=== PATIENT | male | born 1960 | race Caucasian/White ===

== ENCOUNTER 2024-01-01 17:43 | Inpatient (IN) | payer MEDICAID ==
[~2024-01-01] VITALS: Ht 175.3 cm; Wt 80.9 kg
[2024-01-01 02:15] VITALS: BP 110/63
[2024-01-01 17:43] VITALS: BP 114/65
[~2024-01-01 17:43] MED LIST: KEFLEX500 MG PO; VICODIN 5/500 505 MG PO
[2024-01-01] MEDS ORDERED: SODIUM CHLORIDE 0.9% 1,000 ML IV ONE (17:50)
[2024-01-01] MEDS ORDERED: IOHEXOL 350 MG/ML 100 ML VIAL IV ONE ×2 (17:50→18:06)
[2024-01-01] MEDS ORDERED: SODIUM CHLORIDE 0.9% 100 ML BAG IV ONE (17:50)
[2024-01-01] MEDS ORDERED: LORazepam 2 MG/ML VIAL IM ONE (18:05)
[2024-01-01] MEDS ORDERED: SODIUM CHLORIDE 0.9% 100 ML IV ONE (18:06)
[2024-01-01 18:51] LABS: HEMATOCRIT 46.7 % (42.0-52.0); MEAN CELL VOLUME 84.6 fl (80.0-94.0); MEAN CORPUSCULAR HGB CONC 34.3 g/dl (33.0-37.0); MEAN PLATELET VOLUME 11.6 fl (9.6-12.3); PLATELET COUNT AUTOMATED 334 10*3/uL (130-400); RED BLOOD COUNT 5.52 10*6/uL (4.50-5.90); RED CELL DISTRI WIDTH 13.3 % (0-14.5); WHITE BLOOD COUNT 28.9 10*3/uL (4.8-10.8)
[2024-01-01 18:57] LABS: MANUAL DIFF REFLEX YES
[2024-01-01 19:06] LABS: ACT PARTIAL THROMBO TIME 27.1 SECONDS (20.0-32.1)
[2024-01-01 19:10] LABS: BURR CELLS FEW; PLATELET SUFFICIENCY NORMAL (NORMAL); TOTAL CELLS COUNTED 100 #CELLS
[2024-01-01 19:15] LABS: BUN 40 mg/dl (9-23); CHLORIDE 102 mmol/L (98-107); POTASSIUM 4.7 mmol/L (3.4-5.1)
[2024-01-01 19:18] VITALS: BP 124/64
[2024-01-01 19:20] LABS: CPK 13602 U/L (34-171)
[2024-01-01] MEDS ORDERED: ENTACAPONE200 M1 PO (19:20)
[2024-01-01] MEDS ORDERED: PROPAFENONE HC150 MG PO (19:21)
[2024-01-01] MEDS ORDERED: ZOLOFT25 MG PO (19:21)
[2024-01-01] MEDS ORDERED: CARBIDOPA-LEVO1 EAC1 PO (19:22)
[2024-01-01] MEDS ORDERED: SODIUM CHLORIDE 0.9% 1,000 ML IV SCH (19:40)
[2024-01-01 19:50] LABS: BILIRUBIN 1+ (Negative); BLOOD 3+ (Negative); CLARITY Clear (Clear); COLOR Dark Yellow (Yellow); GLUCOSE Negative (Negative); KETONE 1+ (Negative); LEUKO ESTERASE Trace (Negative); NITRITE Negative (Negative); SPECIFIC GRAVITY >= 1.030 (1.001-1.030)
[2024-01-01 20:00] VITALS: BP 110/63
[2024-01-01 20:04] LABS: BACTERIA 1+; MUCOUS 1+; RBC 21-30 rbc/hpf (0-2)
[2024-01-01 20:12] LABS: ALKALINE PHOSPHATASE 51 U/L (46-116); SGPT/ALT 83 U/L (5-49)
[2024-01-01 20:15] LABS: MYOGLOBIN > 10000.0 ng/ml (16-116)
[2024-01-01] MEDS ORDERED: Ceftriaxone Sodium 1 GM/10 ML SYR IV ONE (20:20)
[2024-01-01] MEDS ORDERED: ACETAMINOPHEN 325 MG TAB PO PRN (23:35)
[2024-01-01] MEDS ORDERED: Ondansetron Hydrochloride 4 MG/2 ML VIAL IV PRN (23:35)
[2024-01-01] MEDS ORDERED: ATORVASTATIN CALCIUM 40 MG TABLET PO SCH (23:50)
[2024-01-02 00:45] LABS: URINE AMPHETAMINES Negative (1000ng/ml); URINE BARBITURATES Negative (200ng/ml); URINE BENZODIAZEPINES Negative (200ng/ml); URINE CANNABINOIDS (THC) Negative (50ng/ml); URINE COCAINE Negative (300ng/ml); URINE METHADONE Negative (300ng/ml); URINE OPIATES Negative (300ng/ml); URINE PHENCYCLIDINE Negative (25ng/ml)
[2024-01-02 01:28] VITALS: BP 113/55
[2024-01-02 04:00] VITALS: BP 106/64
[2024-01-02] MEDS ORDERED: SILVER SULFADIAZINE 25 GM TUBE T ONE (04:15)
[2024-01-02 05:33] LABS: ALKALINE PHOSPHATASE 44 U/L (46-116); CHLORIDE 108 mmol/L (98-107); CHOLESTEROL 136 mg/dL (<200); LDL CHOLESTEROL 75 mg/dL (9-159); POTASSIUM 3.9 mmol/L (3.4-5.1); SGPT/ALT 78 U/L (5-49); TOTAL PROTEIN 6.2 gm/dL (6.0-8.0); TRIGLYCERIDES 89 mg/dl (<150)
[2024-01-02 06:01] LABS: BUN 28 mg/dl (9-23)
[2024-01-02 06:04] LABS: HEMATOCRIT 42.5 % (42.0-52.0); MEAN CELL VOLUME 84.7 fl (80.0-94.0); MEAN CORPUSCULAR HGB 28.9 pg (27.0-31.0); MEAN CORPUSCULAR HGB CONC 34.1 g/dl (33.0-37.0); MEAN PLATELET VOLUME 11.9 fl (9.6-12.3); PLATELET COUNT AUTOMATED 264 10*3/uL (130-400); RED BLOOD COUNT 5.02 10*6/uL (4.50-5.90); RED CELL DISTRI WIDTH 13.6 % (0-14.5); WHITE BLOOD COUNT 19.5 10*3/uL (4.8-10.8)
[2024-01-02 06:13] LABS: MANUAL DIFF REFLEX YES
[2024-01-02 09:11] LABS: PLATELET SUFFICIENCY NORMAL (NORMAL); TOTAL CELLS COUNTED 100 #CELLS
[2024-01-02 10:00] VITALS: BP 111/59
[2024-01-02] MEDS ORDERED: Propafenone Hydrochloride 150 MG TAB PO SCH ×2 (10:00→22:00)
[2024-01-02] MEDS ORDERED: LEVODOP PO SCH (10:00)
[2024-01-02] MEDS ORDERED: ENTACAPONE 200 MG TAB PO SCH (10:00)
[2024-01-02] MEDS ORDERED: Sertraline Hydrochloride 50 MG TAB PO SCH (10:00)
[2024-01-02] MEDS ORDERED: Carbidopa/Levodopa 25/100MG 1 TAB TAB PO SCH ×2 (10:00)
[2024-01-02] MEDS ORDERED: ENTACAPONE PO SCH (10:00)
[2024-01-02] MEDS ORDERED: SODIUM CHLORIDE 0.9% 1,000 ML IV ONE (10:00)
[2024-01-02] MEDS ORDERED: ASPIRIN, CHEWABLE 81 MG TAB PO SCH (10:00)
[2024-01-02] MEDS ORDERED: CARBIDOPA PO SCH (10:00)
[2024-01-02] MEDS ORDERED: HEPARIN SODIUM 250 ML IV SCH (10:25)
[2024-01-02] MEDS ORDERED: HEEL PROTECTOR DEVICE ONE (10:56)
[2024-01-02 14:41] LABS: BUN 30 mg/dl (9-23); CHLORIDE 108 mmol/L (98-107); POTASSIUM 3.7 mmol/L (3.4-5.1)
[2024-01-02 15:54] VITALS: BP 106/58
[2024-01-02 19:48] VITALS: BP 112/60
[2024-01-02] MEDS ORDERED: Ceftriaxone Sodium 1 GM in SYRINGE INFUSION 10 ML IV SCH (20:00)
[2024-01-02] MEDS ORDERED: SODIUM CHLORIDE 0.9% 1,000 ML IV SCH (20:00)
[2024-01-02 23:58] VITALS: BP 110/61
[2024-01-03] MEDS ORDERED: Carbidopa/Levodopa 25/100MG 1 TAB TAB PO SCH
[2024-01-03] MEDS ORDERED: ENTACAPONE 200 MG TAB PO SCH
[2024-01-03 03:49] VITALS: BP 123/63
[2024-01-03 06:11] LABS: ALKALINE PHOSPHATASE 37 U/L (46-116); BUN 23 mg/dl (9-23); CHLORIDE 109 mmol/L (98-107); POTASSIUM 3.6 mmol/L (3.4-5.1); SGPT/ALT 18 U/L (5-49); TOTAL PROTEIN 5.3 gm/dL (6.0-8.0)
[2024-01-03 06:24] LABS: BASO % 0.2 % (0.0-1.0); EOS % 0.2 % (1.0-4.0); HEMATOCRIT 37.6 % (42.0-52.0); MEAN CORPUSCULAR HGB 29.1 pg (27.0-31.0); MEAN CORPUSCULAR HGB CONC 33.8 g/dl (33.0-37.0); MEAN PLATELET VOLUME 11.8 fl (9.6-12.3); MONO # 1.2 10*3/uL (0.1-1.0); MONO % 9.6 % (3.0-9.0); NEUT # 9.1 10*3/uL (2.3-7.9); NEUT % 74.4 % (47.0-73.0); PLATELET COUNT AUTOMATED 202 10*3/uL (130-400); RED BLOOD COUNT 4.37 10*6/uL (4.50-5.90); RED CELL DISTRI WIDTH 13.7 % (0-14.5); WHITE BLOOD COUNT 12.2 10*3/uL (4.8-10.8)
[2024-01-03 08:00] VITALS: BP 111/61
[2024-01-03] MEDS ORDERED: Polyethylene Glycol 15 ML BOT OPH PRN (09:20)
[2024-01-03 12:00] VITALS: BP 97/58
[2024-01-03 16:00] VITALS: BP 120/74
[2024-01-03 20:00] VITALS: BP 102/56
[2024-01-04] VITALS: BP 110/60
[2024-01-04 04:00] VITALS: BP 119/67
[2024-01-04 05:12] LABS: ALKALINE PHOSPHATASE 39 U/L (46-116); BUN 19 mg/dl (9-23); CHLORIDE 109 mmol/L (98-107); POTASSIUM 3.6 mmol/L (3.4-5.1); SGPT/ALT 12 U/L (5-49); TOTAL PROTEIN 5.5 gm/dL (6.0-8.0)
[2024-01-04 06:19] LABS: BASO % 0.4 % (0.0-1.0); EOS # 0.1 10*3/uL (0.0-0.4); HEMATOCRIT 37.2 % (42.0-52.0); MEAN CELL VOLUME 86.9 fl (80.0-94.0); MEAN CORPUSCULAR HGB 29.2 pg (27.0-31.0); MEAN CORPUSCULAR HGB CONC 33.6 g/dl (33.0-37.0); MEAN PLATELET VOLUME 11.9 fl (9.6-12.3); MONO % 9.6 % (3.0-9.0); NEUT % 67.6 % (47.0-73.0); PLATELET COUNT AUTOMATED 208 10*3/uL (130-400); RED BLOOD COUNT 4.28 10*6/uL (4.50-5.90); RED CELL DISTRI WIDTH 13.8 % (0-14.5); WHITE BLOOD COUNT 10.3 10*3/uL (4.8-10.8)
[2024-01-04 08:00] VITALS: BP 124/69
[2024-01-04 16:00] VITALS: BP 113/67
[2024-01-04] MEDS ORDERED: RIVAROXABAN 15 MG TAB PO SCH (17:00)
[2024-01-04 20:00] VITALS: BP 133/70
[2024-01-04] MEDS ORDERED: Doxycycline Hyclate 100 MG CAP PO SCH (22:00)
[2024-01-05] VITALS: BP 144/68
[2024-01-05 06:01] LABS: BUN 19 mg/dl (9-23); CHLORIDE 107 mmol/L (98-107); POTASSIUM 3.6 mmol/L (3.4-5.1)
[2024-01-05 06:16] LABS: BASO % 0.3 % (0.0-1.0); EOS # 0.2 10*3/uL (0.0-0.4); EOS % 1.4 % (1.0-4.0); HEMATOCRIT 37.9 % (42.0-52.0); MEAN CELL VOLUME 87.9 fl (80.0-94.0); MEAN CORPUSCULAR HGB 28.8 pg (27.0-31.0); MEAN CORPUSCULAR HGB CONC 32.7 g/dl (33.0-37.0); MEAN PLATELET VOLUME 11.8 fl (9.6-12.3); MONO # 1.1 10*3/uL (0.1-1.0); MONO % 10.2 % (3.0-9.0); NEUT # 6.6 10*3/uL (2.3-7.9); NEUT % 63.8 % (47.0-73.0); PLATELET COUNT AUTOMATED 224 10*3/uL (130-400); RED BLOOD COUNT 4.31 10*6/uL (4.50-5.90); RED CELL DISTRI WIDTH 13.5 % (0-14.5); WHITE BLOOD COUNT 10.4 10*3/uL (4.8-10.8)
[2024-01-05 08:00] VITALS: BP 108/70
[2024-01-05 12:00] VITALS: BP 122/74
[2024-01-05 16:00] VITALS: BP 113/71
[2024-01-05 20:00] VITALS: BP 127/59
[2024-01-06] VITALS: BP 137/63
[2024-01-06 08:00] VITALS: BP 156/68
[2024-01-06] MEDS ORDERED: SODIUM CHLORIDE 0.9% 500 ML IV SCH (10:00)
[2024-01-06] MEDS ORDERED: Sertraline Hydrochloride 50 MG TAB PO SCH (10:00)
[2024-01-06 12:00] VITALS: BP 154/64
[2024-01-06 16:00] VITALS: BP 160/54
[2024-01-06 20:00] VITALS: BP 146/70
[2024-01-06] MEDS ORDERED: CEFDINIR 300 MG CAP PO SCH (22:00)
[2024-01-06] MEDS ORDERED: QUETIAPINE FUMARATE 25 MG TAB PO SCH (22:00)
[2024-01-07] VITALS: BP 132/69
[2024-01-07 06:51] LABS: BASO # 0.1 10*3/uL (0.0-0.1); BASO % 0.4 % (0.0-1.0); EOS # 0.2 10*3/uL (0.0-0.4); EOS % 1.6 % (1.0-4.0); HEMATOCRIT 37.1 % (42.0-52.0); MEAN CELL VOLUME 88.3 fl (80.0-94.0); MEAN CORPUSCULAR HGB 28.6 pg (27.0-31.0); MEAN CORPUSCULAR HGB CONC 32.3 g/dl (33.0-37.0); MEAN PLATELET VOLUME 10.7 fl (9.6-12.3); MONO # 1.3 10*3/uL (0.1-1.0); MONO % 9.7 % (3.0-9.0); NEUT # 9.2 10*3/uL (2.3-7.9); NEUT % 68.2 % (47.0-73.0); PLATELET COUNT AUTOMATED 257 10*3/uL (130-400); RED CELL DISTRI WIDTH 13.5 % (0-14.5); WHITE BLOOD COUNT 13.4 10*3/uL (4.8-10.8)
[2024-01-07 07:12] LABS: BUN 17 mg/dl (9-23); CHLORIDE 107 mmol/L (98-107); POTASSIUM 3.5 mmol/L (3.4-5.1)
[2024-01-07 07:13] LABS: CPK 950 U/L (34-171)
[2024-01-07 08:00] VITALS: BP 138/58
[2024-01-07] MEDS ORDERED: Rivastigmine Tartrate 4.6 MG/24 HR PATCH T SCH (09:00)
[2024-01-07 09:33] LABS: BILIRUBIN 1+ (Negative); BLOOD 2+ (Negative); CLARITY Clear (Clear); COLOR Dark Yellow (Yellow); GLUCOSE Negative (Negative); KETONE Trace (Negative); LEUKO ESTERASE 1+ (Negative); NITRITE Negative (Negative); PH 5.5 (4.5-8.0); SPECIFIC GRAVITY 1.025 (1.001-1.030)
[2024-01-07 09:43] LABS: BACTERIA TRACE; RBC 51-100 rbc/hpf (0-2)
[2024-01-07 09:44] LABS: MUCOUS 1+
[2024-01-07] MEDS ORDERED: FOAM BANDAGE HEEL T ONE ×2 (11:23→13:42)
[2024-01-07 12:00] VITALS: BP 127/73
[2024-01-07 16:00] VITALS: BP 145/66
[2024-01-07 20:00] VITALS: BP 137/70
[2024-01-08] VITALS: BP 107/51
[2024-01-08 06:19] LABS: BUN 19 mg/dl (9-23); CHLORIDE 107 mmol/L (98-107); POTASSIUM 3.7 mmol/L (3.4-5.1)
[2024-01-08 06:22] LABS: BASO % 0.2 % (0.0-1.0); EOS # 0.1 10*3/uL (0.0-0.4); EOS % 0.9 % (1.0-4.0); HEMATOCRIT 37.8 % (42.0-52.0); MEAN CELL VOLUME 87.3 fl (80.0-94.0); MEAN CORPUSCULAR HGB 28.6 pg (27.0-31.0); MEAN CORPUSCULAR HGB CONC 32.8 g/dl (33.0-37.0); MEAN PLATELET VOLUME 10.9 fl (9.6-12.3); MONO # 1.3 10*3/uL (0.1-1.0); MONO % 9.2 % (3.0-9.0); NEUT # 10.2 10*3/uL (2.3-7.9); NEUT % 73.5 % (47.0-73.0); PLATELET COUNT AUTOMATED 282 10*3/uL (130-400); RED BLOOD COUNT 4.33 10*6/uL (4.50-5.90); RED CELL DISTRI WIDTH 13.5 % (0-14.5); WHITE BLOOD COUNT 13.9 10*3/uL (4.8-10.8)
[2024-01-08] MEDS ORDERED: SODIUM CHLORIDE 0.9% 500 ML IV ONE (07:25)
[2024-01-08 08:00] VITALS: BP 115/64
[2024-01-08 12:00] VITALS: BP 149/65
[2024-01-08 16:00] VITALS: BP 148/68
[2024-01-08 20:00] VITALS: BP 110/55
[2024-01-08] MEDS ORDERED: Sertraline Hydrochloride 50 MG TAB PO SCH (22:00)
[2024-01-09] VITALS: BP 124/68
[2024-01-09 08:00] VITALS: BP 132/82
[2024-01-09 12:00] VITALS: BP 145/65
[2024-01-09 16:00] VITALS: BP 118/64
[2024-01-09 20:00] VITALS: BP 113/69
[2024-01-10] VITALS: BP 119/65
[2024-01-10 05:49] LABS: BUN 18 mg/dl (9-23); CHLORIDE 107 mmol/L (98-107); POTASSIUM 3.3 mmol/L (3.4-5.1)
[2024-01-10 06:06] LABS: BASO # 0.1 10*3/uL (0.0-0.1); BASO % 0.4 % (0.0-1.0); EOS # 0.2 10*3/uL (0.0-0.4); EOS % 1.5 % (1.0-4.0); HEMATOCRIT 37.4 % (42.0-52.0); MEAN CELL VOLUME 87.4 fl (80.0-94.0); MEAN CORPUSCULAR HGB 28.5 pg (27.0-31.0); MEAN CORPUSCULAR HGB CONC 32.6 g/dl (33.0-37.0); MEAN PLATELET VOLUME 10.8 fl (9.6-12.3); MONO % 8.6 % (3.0-9.0); NEUT # 7.9 10*3/uL (2.3-7.9); NEUT % 68.3 % (47.0-73.0); PLATELET COUNT AUTOMATED 315 10*3/uL (130-400); RED BLOOD COUNT 4.28 10*6/uL (4.50-5.90); RED CELL DISTRI WIDTH 13.5 % (0-14.5); WHITE BLOOD COUNT 11.6 10*3/uL (4.8-10.8)
[2024-01-10 08:00] VITALS: BP 158/65
[2024-01-10] MEDS ORDERED: POTASSIUM CHLORIDE 20 MEQ TAB PO ONE (08:35)
[2024-01-10 12:00] VITALS: BP 135/55
[2024-01-10 16:00] VITALS: BP 139/61
[2024-01-10 20:00] VITALS: BP 117/66
[2024-01-10] MEDS ORDERED: QUETIAPINE FUMARATE 25 MG TAB PO SCH (22:00)
[2024-01-11] VITALS: BP 124/68
[2024-01-11 05:52] LABS: BUN 16 mg/dl (9-23); CHLORIDE 110 mmol/L (98-107); POTASSIUM 3.4 mmol/L (3.4-5.1)
[2024-01-11 06:27] LABS: BASO # 0.1 10*3/uL (0.0-0.1); BASO % 0.5 % (0.0-1.0); EOS # 0.2 10*3/uL (0.0-0.4); EOS % 1.5 % (1.0-4.0); HEMATOCRIT 36.3 % (42.0-52.0); MEAN CORPUSCULAR HGB 28.7 pg (27.0-31.0); MEAN CORPUSCULAR HGB CONC 32.2 g/dl (33.0-37.0); MONO # 1.1 10*3/uL (0.1-1.0); MONO % 8.5 % (3.0-9.0); NEUT # 8.2 10*3/uL (2.3-7.9); NEUT % 66.8 % (47.0-73.0); PLATELET COUNT AUTOMATED 334 10*3/uL (130-400); RED BLOOD COUNT 4.08 10*6/uL (4.50-5.90); RED CELL DISTRI WIDTH 13.6 % (0-14.5); WHITE BLOOD COUNT 12.4 10*3/uL (4.8-10.8)
[2024-01-11 08:00] VITALS: BP 118/72
[2024-01-11] MEDS ORDERED: Rivastigmine Tartrate 9.5 MG/24 HR PATCH T SCH (09:00)
[2024-01-11 12:00] VITALS: BP 110/62
[2024-01-11 16:00] VITALS: BP 109/68
[2024-01-11 20:00] VITALS: BP 118/65
[2024-01-11] MEDS ORDERED: BISACODYL 10 MG SUPP R PRN (23:30)
[2024-01-11] MEDS ORDERED: Magnesium Hydroxide 30 ML UDC PO PRN (23:30)
[2024-01-11] MEDS ORDERED: BISACODYL 5 MG TAB PO PRN (23:30)
[2024-01-12] VITALS: BP 128/74
[2024-01-12 06:44] LABS: BASO # 0.1 10*3/uL (0.0-0.1); BASO % 0.4 % (0.0-1.0); EOS # 0.2 10*3/uL (0.0-0.4); EOS % 1.3 % (1.0-4.0); HEMATOCRIT 37.7 % (42.0-52.0); MEAN CELL VOLUME 87.9 fl (80.0-94.0); MEAN CORPUSCULAR HGB 29.6 pg (27.0-31.0); MEAN CORPUSCULAR HGB CONC 33.7 g/dl (33.0-37.0); MEAN PLATELET VOLUME 10.9 fl (9.6-12.3); MONO % 7.4 % (3.0-9.0); NEUT # 9.5 10*3/uL (2.3-7.9); NEUT % 69.7 % (47.0-73.0); PLATELET COUNT AUTOMATED 353 10*3/uL (130-400); RED BLOOD COUNT 4.29 10*6/uL (4.50-5.90); RED CELL DISTRI WIDTH 13.7 % (0-14.5); WHITE BLOOD COUNT 13.7 10*3/uL (4.8-10.8)
[2024-01-12 06:58] LABS: BUN 16 mg/dl (9-23); CHLORIDE 108 mmol/L (98-107); POTASSIUM 3.7 mmol/L (3.4-5.1)
[2024-01-12 08:00] VITALS: BP 109/61
[2024-01-12] MEDS ORDERED: FOAM BANDAGE HEEL T ONE (11:14)
[2024-01-12 12:00] VITALS: BP 101/59
[2024-01-12 16:00] VITALS: BP 119/66
[2024-01-12 20:00] VITALS: BP 108/48
[2024-01-13] VITALS: BP 105/60
[2024-01-13 06:27] LABS: BASO # 0.1 10*3/uL (0.0-0.1); BASO % 0.5 % (0.0-1.0); EOS # 0.2 10*3/uL (0.0-0.4); EOS % 1.2 % (1.0-4.0); HEMATOCRIT 35.7 % (42.0-52.0); MEAN CELL VOLUME 88.6 fl (80.0-94.0); MEAN CORPUSCULAR HGB 29.5 pg (27.0-31.0); MEAN CORPUSCULAR HGB CONC 33.3 g/dl (33.0-37.0); MEAN PLATELET VOLUME 10.7 fl (9.6-12.3); MONO # 1.1 10*3/uL (0.1-1.0); MONO % 8.5 % (3.0-9.0); NEUT # 8.8 10*3/uL (2.3-7.9); PLATELET COUNT AUTOMATED 348 10*3/uL (130-400); RED BLOOD COUNT 4.03 10*6/uL (4.50-5.90); RED CELL DISTRI WIDTH 13.6 % (0-14.5); WHITE BLOOD COUNT 12.8 10*3/uL (4.8-10.8)
[2024-01-13 08:00] VITALS: BP 121/56
[2024-01-13 12:00] VITALS: BP 115/54
[2024-01-13] MEDS ORDERED: FOAM BANDAGE 5X5 T ONE (14:11)
[2024-01-13] MEDS ORDERED: BACTRIM 400-801 EACH PO (15:02)
[2024-01-13] MEDS ORDERED: ATORVASTATIN CA40 M1 PO (15:02)
[2024-01-13] MEDS ORDERED: RIVASTIGMINE1 EAC1 T (15:02)
[2024-01-13] MEDS ORDERED: QUETIAPINE FUMA25 MG PO (15:02)
[2024-01-13] MEDS ORDERED: SERTRALINE HYDR50 MG PO (15:02)
[2024-01-13] MEDS ORDERED: XARE20MG PO (15:02)
[2024-01-13] MEDS ORDERED: XARE15TA PO (15:02)
[2024-01-13] MEDS ORDERED: ASPIRIN CHILDRE81 MG PO (15:02)
[2024-01-13] MEDS ORDERED: Sulfamethoxazole/Trimethopri 1 TAB TAB PO SCH (22:00)
== END 2024-01-13 17:20 | disposition home health service (06) | DRG 871 ==
LOC: ED 17:43 → ICCU 23:22 → 4E 23:22 → EDHOLD 23:22 → ICCU 01-02 02:07 → 4E 01-04 14:05
PROVIDERS: Emergency Medicine; Registered Nurse; Student in an Organized Health Care Education/Training Program; ADMIT Family Medicine; ATTEND Family Medicine
DX: A41.9 Sepsis, unspecified organism (principal); E43 Unspecified severe protein-calorie malnutrition; L89.893 Pressure ulcer of other site, stage 3; G93.41 Metabolic encephalopathy; L03.313 Cellulitis of chest wall; L03.114 Cellulitis of left upper limb; I82.622 Acute embolism and thrombosis of deep veins of left upper extremity; G20.A1 Parkinson's disease without dyskinesia, without mention of fluctuations; R73.9 Hyperglycemia, unspecified; R74.01 Elevation of levels of liver transaminase levels; I48.91 Unspecified atrial fibrillation; T79.6XXA Traumatic ischemia of muscle, initial encounter; R65.20 Severe sepsis without septic shock; Z88.8 Allergy status to other drugs, medicaments and biological substances; Z91.09 Other allergy status, other than to drugs and biological substances; Z79.899 Other long term (current) drug therapy; Z68.25 Body mass index [BMI] 25.0-25.9, adult; Z79.01 Long term (current) use of anticoagulants; Z79.2 Long term (current) use of antibiotics; W18.39XA Other fall on same level, initial encounter; Y93.89 Activity, other specified; Y92.89 Other specified places as the place of occurrence of the external cause; Y99.8 Other external cause status; Z80.8 Family history of malignant neoplasm of other organs or systems